=== PATIENT | male | born 1970 | race Caucasian/White ===

== ENCOUNTER 2016-08-30 16:38 | Emergency (ER) | payer OTHER ==
[2016-08-30 16:50] VITALS: BP 141/81; PULSE 72; RESP 16; TEMP 98.1; O2SAT 95
--- NOTE | 2016-08-30 16:59 | EDPHY ---
H & P Time Seen by Provider: 08/30/16 16:51 HPI/ROS: CHIEF COMPLAINT: Right great toe pain HISTORY OF PRESENT ILLNESS: Started having pain in that area after trauma; Patient was first stepped on by one of his kids with soccer cleats on the 07 of August. He then had a [place] golf tournament and injured it again with a flag stick on the . It was then swollen and painful and slowly got better, but over the last couple of days he was out of town playing golf and the toe started getting more swollen and red. Pain is at the IP joint medially and slightly red. Same place as previous trauma. Pain worse with palpation or movement. REVIEW OF SYSTEMS: No other foot pain. No ankle or leg symptoms. PAST MEDICAL HISTORY: Umbilical hernia and tonsillectomy. Not diabetic. General Appearance: Alert and conversant, cooperative. Exam of right lower extremity. Calf nontender. Ankle joint normal. Dorsalis pedis pulse and motor and sensory in the foot is normal. Swelling redness and pain to palpation on the medial side of the IP joint of the right foot. Area of redness only medially, 1.5 cm in diameter. Mild warmth. No lymphangitis. Not red or hot on proximal toe or MTP. The MTP joint is not swollen or painful. No blister, eschar, crepitus, or open wound. Nail intact. Can range IP joint but it is swollen and painful to do so. Emergency Department course/MDM: X-ray right great toe performed, indication is pain after trauma. 1710: Results discussed, negative x-ray. Will treat with hard shoe and 1 week of oral antibiotics for possible cellulitis after local trauma. Gout also considered but symptoms and swelling is not in the MTP joint, it is associated with trauma, no history of gout personally or in his family, I think this is less likely. I think abscess or fasciitis or septic joint is also unlikely. Referred to his previous business investor (Marian[facility]) or literacy consultant. Smoking Status: Never smoked Constitutional: Initial Vital Signs Temperature (C) 36.7 C 08/30/16 16:46 Heart Rate 72 08/30/16 16:46 Respiratory Rate 16 08/30/16 16:46 Blood Pressure 141/81 H 08/30/16 16:46 O2 Sat (%) 95 08/30/16 16:46 O2 Delivery Mode Room Air Allergies/Adverse Reactions: No Known Allergies Allergy (Verified 08/30/16 16:45) Home Medications: Medication Instructions Recorded No Medications [No Meds] 01/13/13 Cephalexin [Keflex] 500 mg PO QID #28 cap 08/30/16 Sulfamethox/Tmp 800/160 mg 1 tab PO BID@1000,2200 #14 tab 08/30/16 [Bactrim Ds] MDM/Departure - MDM Imaging Results: Imaging Impressions Toe X-Ray 08/30/16 16:51 Impression: Negative for fracture. - Depart Disposition: Home, Routine, Self-Care Clinical Impression: Cellulitis of toe of right foot Contusion of great toe, right Qualifiers: Encounter type: initial encounter Damage to nail status: without damage Qualified Code(s): S90.111A - Contusion of right great toe without damage to nail, initial encounter Condition: Good Instructions: Cellulitis (ED), Contusion in Adults (ED) Additional Instructions: Please follow-up with business investor Dr. Quintana who you of seen before, or our on- call business investor Dr. Ross early next week if you're not improving. Return immediately for evaluation if you get worsening or severe pain or swelling or redness, fever, or red streaks going up your leg. Prescriptions: Cephalexin [Keflex] 500 mg PO QID #28 cap Sulfamethox/Tmp 800/160 mg [Bactrim Ds] 1 tab PO BID@1000,2200 #14 tab Referrals: Frieda Kowalski [Primary Care Provider] - As per Instructions Zoran Ross DPM [Doctor of Podiatric Medicine] - As per Instructions Poly Quintana DPM [Doctor of Podiatric Medicine] - As per Instructions
== END 2016-08-30 17:25 | disposition home or self-care (01) ==
LOC: CED 16:38
DX: S90.111A Contusion of right great toe without damage to nail, initial encounter (principal); L03.031 Cellulitis of right toe; W50.0XXA Accidental hit or strike by another person, initial encounter
CPT/HCPCS: 73660-PO; L3260

== ENCOUNTER 2018-02-28 09:58 | Emergency (ER) | payer SELFPAY ==
[2018-02-28] MEDS ORDERED: NS 500 ML IV ONE (10:29)
[2018-02-28] MEDS ORDERED: KETOROLAC 30 MG/1 ML SDV IVP ONE (10:29)
--- NOTE | 2018-02-28 10:37 | EDPHY ---
H & P Time Seen by Provider: 02/28/18 10:03 HPI/ROS: HPI Right knee pain. 47-year-old male by private vehicle. This patient reports that he developed pain to the right medial mid arch of his foot last Saturday. This pain then migrated up to his right knee and also to the dorsal aspect of his right 2nd proximal toe. He denies any history of trauma. He has not had a fever. He reports that his pain in his right knee is the worsening he is having difficulty moving the right knee because of the pain. He said that the arch of his foot no longer bothers him but his right proximal 2nd toe is still quite painful. He reports that he has had similar pain involving the right knee this last November as well as the right big toe about a year ago. He states however that there were mild traumatic mechanisms he thought responsible for that pain. He is currently fighting an upper respiratory infection. ROS: Constitutional: No fever, no chills. No weakness. Eyes: No discharge. No changes in vision. ENT: No sore throat. He has had nasal congestion with clear rhinorrhea. Respiratory: He has had a mild cough. No shortness of breath. Cardiac: No chest pain, no palpitations. Gastrointestinal: No abdominal pain, no vomiting, no diarrhea. Genitourinary: No hematuria. No dysuria or increased frequency with urination. Musculoskeletal: No back pain. No neck pain. As above. Skin: No rashes. Neurological: No headache. No focal weakness or altered sensation. Past medical history: Umbilical hernia repair. He is not a diabetic. Social history: Nonsmoker. He is . He is currently here by himself. Physical Exam: General Appearance: Alert, no distress. This patient is responding to questions appropriately and in full sentences. This patient appears well- hydrated and well-nourished. Eyes: Pupils equal and round no pallor or injection. No lid edema, erythema or injection. Right knee and foot exam: There is a small effusion. No associated erythema or warmth. He has significant discomfort with any movement flexion/extension of the knee both passive and active. There is not significant tenderness involving the medial and lateral joint lines. He has no tenderness on palpation of his right foot arch. He does have some tenderness on palpation of the dorsal aspect of the proximal 2nd toe and there is a faint erythema and subtle swelling to this area. No significant warmth. The right lower extremity is neurovascularly intact. Neurological: Motor sensory function is grossly intact. Cranial nerves are normal. Skin: Warm and dry, no rashes. Musculoskeletal: Neck is supple and nontender. Extremities are symmetrical except noted. All joints range without pain or impingement except noted. Psychiatric: No agitation. No depression. Database: EKG: Right lower extremity ultrasound: Negative for DVT. Results discussed with staff radiologist. Right foot x-ray series: Negative for fracture, subluxation, dislocation or other bony abnormality. Interpreted by me. Right knee x-ray series: Small joint effusion. Otherwise negative for fracture , subluxation, dislocation other bony abnormality. Interpreted by me. Imaging: Procedures: Procedure: Arthrocentesis of the right knee. After verbal informed consent was obtained explaining the risks including but not limited to infection and bleeding a arthrocentesis was performed on the right knee. The patient was prepped and draped in the usual sterile fashion. The joint was anesthetized with 0.5% bupivacaine without epinephrine. Approximately 0.5 cc of straw/bloody fluid was obtained. I was not able to obtain more fluid volume despite repositioning of the needle. There were no complications. The procedure was performed by myself. Emergency department course: Triage vital signs reviewed and are normal. An IV was placed. He has no contraindications to NSAIDs. No history of renal dysfunction. No history of peptic ulcer disease. He will be given 30 mg of IV Toradol. He will be started on 500 cc of IV normal saline to be given over the next hour. His presentation is consistent with a reactive arthritis, possibly coinciding with this upper respiratory infection. Given no fever or significant erythema or warmth or toxic appearance as well as a leukocytosis I feel a septic knee joint is unlikely. ESR and CRP is been ordered. 11:45 a.m., patient re-evaluated, pain is improved significantly after IV Toradol. 12:00 p.m., the patient was re-evaluated. I discussed the results of his x-rays , CBC done here in the emergency department and ultrasound. I spoke with the orthopedic office of Dr. Radha Hansen. They have an opening at 12:15 p.m.. The patient will be discharged from the emergency department now and will be seen in their office for further evaluation at 12:15 p.m.. The patient agrees with this plan. Return to emergency department precautions have been reviewed with him. ESR and CRP are currently pending. However, I feel that septic arthritis is unlikely in this patient. Arthrocentesis will again be considered on re- evaluation of the patient upstairs with Dr. Radha Hansen and company. The patient was discharged in stable condition to the orthopedic office of Dr. Radha Hansen. Differential Diagnosis: The differential diagnosis on this patient includes but is not limited to reactive arthritis, inflammatory arthritis. Septic arthritis unlikely. This represents a partial list of diagnoses considered. These considerations are based on history, physical exam, past history, reassessment and diagnostic testing. Smoking Status: Never smoked Constitutional: Initial Vital Signs Temperature (C) 37 C 02/28/18 10:03 Heart Rate 88 02/28/18 10:03 Respiratory Rate 18 02/28/18 10:03 Blood Pressure 132/107 H 02/28/18 10:03 O2 Sat (%) 94 02/28/18 10:03 O2 Delivery Mode Room Air Allergies/Adverse Reactions: No Known Allergies Allergy (Verified 02/28/18 10:08) Home Medications: Medication Instructions Recorded NK [No Known Home Meds] 02/28/18 Medical Decision Making - Data Points Laboratory Results: Laboratory Results 02/28/18 10:35 Medications Given: Discontinued Medications Sodium Chloride (Ns) 500 mls @ 0 mls/hr IV EDNOW ONE; Wide Open PRN Reason: Protocol Stop: 02/28/18 10:30 Last Admin: 02/28/18 10:37 Dose: 500 mls Ketorolac Tromethamine (Toradol) 30 mg IVP EDNOW ONE Stop: 02/28/18 10:30 Last Admin: 02/28/18 10:38 Dose: 30 mg Point of Care Test Results: CBC CBC Collection Date 02/28/18 CBC Collection Time 10:35 WBC 9.5 RBC 4.93 HGB 15.7 HCT 44.0 PLT 252 Neut # 6.2 Neut 65.5 LYMPH # 2.6 LYMPH 27.3 Other WBC # 0.7 Other WBC 7.2 MCV 89.2 Departure - Departure Disposition: Home, Routine, Self-Care Clinical Impression: Right knee pain, Reactive arthritis of knee Condition: Good Instructions: Arthritis (ED) Additional Instructions: Read and follow provided instructions. Go upstairs to the office of Dr. Radha Hansen of the Orthopedic service, you will be seen at 12:15 p.m. Consider NSAID therapy with ibuprofen for ongoing treatment. Orthopedics will discuss this with you. You also have 2 blood tests that are pending results and need to be sent to the lab over at the [facility]. Return to the emergency department for worsening symptoms, worsening pain, fever , discoloration or swelling of your knee or toe or other serious concerns. Referrals: Frieda Kowalski [Primary Care Provider] - As per Instructions Radha Hansen MD [Medical Doctor] - As per Instructions
[2018-02-28 12:09] VITALS: BP 130/79
== END 2018-02-28 12:11 | disposition home or self-care (01) ==
LOC: CED 09:58
DX: M25.561 Pain in right knee (principal); M02.9 Reactive arthropathy, unspecified
CPT/HCPCS: 73564-PO; 73630-PO; 93971-PO; 96374; J1885